=== PATIENT | male | born 1965 | race Asian ===

== ENCOUNTER 2018-01-31 18:56 | Emergency (ER) | payer OTHER ==
[~2018-01-31] VITALS: Ht 162.6 cm; Wt 81.1 kg
[2018-01-31 18:59] VITALS: BP 135/89
[2018-01-31] MEDS ORDERED: SULF1TAB49 PO (21:11)
== END 2018-01-31 21:31 | disposition home or self-care (01) ==
LOC: ER 18:57
DX: H00.015 Hordeolum externum left lower eyelid (principal); Z79.899 Other long term (current) drug therapy
CPT/HCPCS: 99283